=== PATIENT | female | born 1970 ===

== ENCOUNTER 2022-06-03 16:18 | Outpatient (CLI) | payer OTHER | END 2022-06-03 16:23 | disposition home or self-care (01) | LOC: RAD 16:18 | PROVIDERS: ATTEND Orthopaedic Surgery | DX: M25.561 Pain in right knee (principal); M25.562 Pain in left knee ==

== ENCOUNTER → 2022-06-13 | Outpatient (CLI) | payer OTHER | END | disposition home or self-care (01) | LOC: RAD 15:01 | PROVIDERS: ATTEND Orthopaedic Surgery | DX: R07.9 Chest pain, unspecified (principal) ==

== ENCOUNTER 2022-09-19 09:20 | Outpatient (CLI) | payer OTHER | END 2022-09-19 10:00 | disposition home or self-care (01) | LOC: RAD 09:20 | PROVIDERS: ATTEND Orthopaedic Surgery | DX: M25.561 Pain in right knee (principal); M25.562 Pain in left knee ==